=== PATIENT | male | born 1970 | race Caucasian/White ===

== ENCOUNTER 2021-01-12 09:08 | Emergency (ER) | payer OTHER ==
[~2021-01-12] VITALS: Ht 172.7 cm; Wt 99.8 kg
[2021-01-12 10:21] LABS: BASO % 0.4 % (0.0-1.0); EOS # 0.1 10*3/uL (0.0-0.4); EOS % 1.5 % (1.0-4.0); HEMATOCRIT 45.7 % (42.0-52.0); LYMPH # 1.3 10*3/uL (1.3-4.4); LYMPH % 16.8 % (27.0-41.0); MEAN CELL VOLUME 88.9 fl (80.0-94.0); MEAN CORPUSCULAR HGB 30.9 pg (27.0-31.0); MEAN CORPUSCULAR HGB CONC 34.8 g/dl (33.0-37.0); MEAN PLATELET VOLUME 9.6 fl (9.6-12.3); MONO % 13.4 % (3.0-9.0); NEUT % 67.2 % (47.0-73.0); PLATELET COUNT AUTOMATED 184 10*3/uL (130-400); RED BLOOD COUNT 5.14 10*6/uL (4.50-5.90); RED CELL DISTRI WIDTH 12.3 % (0-14.5); WHITE BLOOD COUNT 7.4 10*3/uL (4.8-10.8)
[2021-01-12 10:31] LABS: BILIRUBIN Negative (Negative); BLOOD Negative (Negative); CLARITY Clear (Clear); COLOR Yellow (Yellow); GLUCOSE Negative (Negative); KETONE Negative (Negative); LEUKO ESTERASE Negative (Negative); NITRITE Negative (Negative); UROBILINOGEN 0.2 E.U./dl (0.0-1.0)
[2021-01-12 10:31] LABS: ACT PARTIAL THROMBO TIME 26.5 SECONDS (20.0-32.1); INTERNATIONAL NORM RATIO 1.1 (2.0-3.5)
[2021-01-12 10:38] LABS: MUCOUS 1+
[2021-01-12 10:39] LABS: EPITHELIAL CELLS 0-2
[2021-01-12 10:40] LABS: ALBUMIN 3.6 gm/dl (3.1-4.5); BUN 14 mg/dl (7-24); CHLORIDE 106 mmol/L (98-107); LIPASE 141 U/L (73-393); SODIUM 137 mmol/L (136-145)
[2021-01-12 10:44] LABS: ALKALINE PHOSPHATASE 55 U/L (45-117); CREATININE 1.15 mg/dL (0.70-1.30); SGOT/AST 27 IU/L (3-35); SGPT/ALT 55 U/L (12-78); TOTAL PROTEIN 7.7 gm/dL (6.4-8.2)
[2021-01-12 10:45] LABS: TROPONIN I < 0.015 ng/ml (<0.045)
[2021-01-12] MEDS ORDERED: Motrin,Rufen800 MG PO ×2 (11:57→12:01)
[2021-01-12] MEDS ORDERED: CYCLOBENZAPRINE10 MG PO ×2 (11:57→12:01)
== END 2021-01-12 12:15 | disposition home or self-care (01) ==
LOC: ED 09:08
PROVIDERS: Emergency Medicine
DX: R10.9 Unspecified abdominal pain (principal); Z87.891 Personal history of nicotine dependence